=== PATIENT | female | born 1965 | race Caucasian/White ===

== ENCOUNTER 2025-04-05 09:00 | Outpatient (OUT) | payer BC, SELFPAY ==
--- OUTSIDE RECORDS SUMMARY | 2025-04-05 09:07 | XMS_ITS | Clinical Summary ---
Author Organization [facility] Address [address] [place] [address] Care Team Providers Care Review Scheduling Coordinator Name Role Phone Unavailable Primary Care Provider Unavailabl e Allergies No known active allergies Medications No known medications Active Problems No known active problems Social History Tobacco Use Types Packs/Day Years Used Date Smoking Tobacco: Never Smokeless Tobacco: Never Tobacco Cessation:Counseling Given: Not Answered Comments Unknown Sex and Gender Information Value Date Recorded Sex Assigned at Not on file Legal Sex Female 8:22 PM EDT Gender Identity Not on file Sexual Orientation Not on file Plan of Treatment Upcoming Encounters Date Type Department Care Team (Late st Contact Info) Description 12/18/2025 12:40 PM EST Office Visit [facility] [address] [place] [phone] Mabel Soler, PA [address] [place] [address] Health Maintenance Due Date Last Done Comments CT Colonography 1966 Colonoscopy 1966 Colorectal Cancer Screening 1966 FIT-DNA 1966 FIT 1966 FOBT 1966 Sigmoidoscopy 1966 HPV/Cotest 01/09/1996 Influenza Vaccine (Season Ended) 2025 Mammogram 09/14/2025 09/14/2024, 09/02, 03/24/2023, Additional history exists Cervical Cancer Screening 07/02/2026 Pap Smear 07/02/2026 07/02/2023, 06/04, 12/25/2020, Additional history exists Procedures Procedure Name Priority Date/Time Associated Diagnosis Comments BI MAMMOGRAM SCREENING BILATERAL Routine 01/07/2021 12:00 PM EST from Last 3 Months or Most Recently Relevant to Health Maintenance Results * Bilateral screening mammogram (01/07/2021 12:00 PM EST) Anatomical Region Laterality Modality Breast Bilateral Mammography Narrative 01/07/2021 12:00 PM EST PERFORMED AT [facility] LOCATION:[id number] Procedure Note CONVERSION, GENERIC - 05/08/2023 PERFORMED AT [facility] LOCATION:[id number] Mabel EISENBERG IMG BI PROCEDURES Final Resul t from Last 3 Months or Most Recently Relevant to Health Maintenance Insurance [facility]
--- OUTSIDE RECORDS SUMMARY | 2025-04-05 09:07 | XMS_ITS | Clinical Summary ---
Author Organization [facility] Address [address] [place] [address] Care Team Providers Care Trial Manager Name Role Phone Carter Donahue DO Primary Care Provider [phone] Allergies No known active allergies Medications Collagen-Vitami n C-Biotin (COLLAGEN PO) Take by mouth Ac tive vitamin D (ERGOCALCIFEROL ) 1.25 MG (00525 UT) CAPS capsule Take 1 capsule by mouth once a week Active NONFORMULARY suppllements Acti ve Active Problems Problem Noted Date Diagnosed Date Diarrhea, unspecified 09/10/2023 09/10/2023 Lyme disease 09/10/2023 09/10/2023 Overweight 09/10/2023 09/10/2023 Family history of malignant neoplasm of breast 1 11/10/2022 09/10/2023 Family history of colon cancer in mother 021 Family history of colon cancer 08/14/2016 Diverticulosis of large intestine without hemorr josé Internal hemorrhoids Resolved Problems Problem Noted Date Diagnosed Date Resolved Date Colon cancer screening 08/14/201607/29 Encounters Date Type Department Care Team Description 03/02/2025 8:45 AM EDT Office Visit [facility] Part of [address] [place] [address] So Stone APRN - CNM Encounter for annual routine gynecological examination (Primary Dx); Screening for colon cancer; Screening mammogram, encounter for from Last 3 Months Immunizations Immunization Administration Dates Next Due TDaP, ADACEL (age 10y-64y), BOOSTRIX (age 10y+), IM, 0.5mL 1985 Family History Medical History Relation Name Comments Learning Disabilities Brother Heart Attack Father Colon Cancer Mother Glaucoma Sister Relation Name Status Comments Brother Father Maternal Grandfather Maternal Grandmother Mother Other Other Paternal Grandfather Paternal Grandmother Sister Alive Social History Tobacco Use Types Packs/Day Years Used Date Smoking Tobacco: Never Smokeless Tobacco: Never Tobacco Cessation:Counseling Given: Not Answered Alcohol Use Standard Drinks/Week Comments Yes 0 (1 standard drink = 0.6 oz pur e alcohol) Social [facility] Utilities Answer Date Recorded In the past 12 months has th e electric, gas, oil, or water company threatened to shut off services in your home? No 03/02/2025 PHQ-2 Answer Date Recorded PHQ-9 Total Score 0 03/02/2025 Hunger Vital Sign Answer Date Recorded Within the past 12 months, y ou worried that your food would run out before you got the money to buy more. Never true 03/02/20 25 Within the past 12 months, t he food you bought just didn't last and you didn't have money to get more. Never true 03/02/2025 PRAPARE - Transportation Answer Date Re corded In the past 12 months, has l ack of transportation kept you from medical appointments or from getting medications? No 11/2024 In the past 12 months, has l ack of transportation kept you from meetings, work, or from getting things needed for daily living? No 03/02/2025 Housing Stability Vital Sign Answer Juan e Recorded In the last 12 months, was t here a time when you were not able to pay the mortgage or rent on time? No 03/02/2025 In the past 12 months, how m any times have you moved where you were living? 0 03/02/2025 At any time in the past 12 m [facility], were you homeless or living in a [place] facility (including now)? No 03/02/2025 Food Insecurity Answer Date Recorded Within the past 12 months, y ou worried that your food would run out before you got the money to buy more. 1 03/02/2025 Within the past 12 months, t he food you bought just didn't last and you didn't have money to get more. 1 03/02/2025 Comments No Sex and Gender Information Value Date Recorded Sex Assigned at Not on file Legal Sex Female 10:59 AM EST Gender Identity Not on file Sexual Orientation Not on file Last Filed Vital Signs Vital Sign Reading Time Taken Comments Blood Pressure 122/76 03/02/2025 8:38 AM EDT Pulse 84 09/10/2023 10:51 AM EST Temperature 37.1 C (98.8 F) 10/06/2016 12:47 PM EST Respiratory Rate 18 09/10/2023 10:51 AM EST Oxygen Saturation 99% 09/10/2023 10:51 AM EST Inhaled Oxygen Concentration - - Weight 73.5 kg (162 lb) 03/02/2025 8:38 AM EDT Height 157.5 cm (5' 2 ) 03/02/2025 8:38 AM EDT Body Mass Index 29.63 03/02/2025 8:38 AM EDT Plan of Treatment Upcoming Encounters Date Type Department Care Team (Late st Contact Info) Description 03/08/2026 8:15 AM EDT Office Visit [facility] Part of [address] [place] [address] So Stone, BILL DISTRIBUTOR - CN[address] [place] [address] yearly Health Maintenance Due Date Last Done Comments Hepatitis C screen 01/09/1984 Hepatitis B vaccine (1 of 3 - 19+ 3-dose series) 1985 DTaP/Tdap/Td vaccine (2 - Td or Tdap) 1995 1985 HPV (without or with Pap) 01/09/1996 Diabetes screen 2001 Lipids 2006 FIT/FOBT: Average risk 2011 Fecal-DNA (Cologuard): Average risk 2011 Sigmoidoscopy/CT colonography 2011 Pneumococcal 50+ years Vaccine (1 of 1 - PCV) 01/09/2016 Shingles vaccine (1 of 2) 01/09/2016 COVID-19 Vaccine (2 - season) 2024 03/18/2021 Flu vaccine (Season Ended) 2025 Depression Screen 03/02/2026 03/02/2025, 03/02/2025 Cervical cancer screen 07/02/2026 Pap smear 07/02/2026 07/02/2023, 01/31, 12/25/2020, Additional history exists Breast cancer screen 09/14/2026 09/14/2024, 03/24/2023, 02/20/2022, Additional history exists Colonoscopy 10/06/2026 10/06/2016 Colorectal Cancer Screen 10/06/2026 HIV screen Completed 10/02/1990 Hepatitis A vaccine Aged Out No longe r eligible based on patient's age to complete this topic Hib vaccine Aged Out No longer eligi ble based on patient's age to complete this topic Meningococcal (ACWY) vaccine Aged Out No longer eligible based on patient's age to complete this topic Meningococcal B vaccine Aged Out No l onger eligible based on patient's age to complete this topic Polio vaccine Aged Out No longer elig ible based on patient's age to complete this topic Procedures Procedure Name Priority Date/Time Associated Diagnosis Comments HOME OMAR DIGITAL SCREEN SELF REFERRAL W OR WO CAD BILATERAL Routine 09/14/2024 1:18 PM EST Visit for screening mammogram FOREST TECHNICIAN CYTOLOGY Routine 07/02/2023 12:00 AM EDT from Last 3 Months or Most Recently Relevant to Health Maintenance Results * HOME OMAR DIGITAL SCREEN SELF REFERRAL W OR WO CAD BILATERAL (09/14/2024 1:18 PM EST) Anatomical Region Laterality Modality Breast Bilateral Mammography 09/14/2024 2:12 PM EST Impressions 09/14/2024 2:13 PM EST No mammographic evidence of malignancy BIRADS: BIRADS - CATEGORY 1 Negative. Normal interval follow-up is recommended in 12 months. OVERALL ASSESSMENT - NEGATIVE A letter of notification will be sent to the patient regarding the results. The [employer] recommends annual mammograms for women 40 years and older. Performing Facility: [place] [address] Narrative 09/14/2024 2:13 PM EST EXAMINATION: SCREENING DIGITAL BILATERAL MAMMOGRAM WITH TOMOSYNTHESIS, 09/14/2024 TECHNIQUE: Screening mammography of the bilateral breasts was performed with tomosynthesis. 2D standard and 3D tomosynthesis combination imaging performed through both breasts in the MLO and CC projection. Computer aided detection was utilized in the interpretation of this exam. COMPARISON: March 24, 2023 and February 20, 2022 HISTORY: Screening. FINDINGS: There are scattered areas of fibroglandular density. There is no dominant mass, architectural distortion or concerning grouping of microcalcification in either breast. So Stone BILL DISTRIBUTOR - CNM IMG MAMMOGRAPHY ORDERABLES Final Result * FOREST TECHNICIAN Cytology (07/02/2023 12:00 AM EDT) Cytology Report Path Number: [id number] DIAGNOSIS Imaged ThinPrep Pap - Cervical (1 monolayer slide): Specimen Adequacy: Satisfactory for evaluation. -Endocervical/tra nsformation zone component cannot be determined due to atrophy. Descriptive Diagnosis: Negative for intraepithelial lesion or malignancy. Cytotech Screener: EY Electronically Signed Out John Elias CT(ASCP) ey/07/10/2023 Source of Specimen: A: Imaged ThinPrep Pap - Cervical (1 monolayer slide) HPV Reflex?........... ...........HPV if ASCUS Clinical History Postmenopausal High Risk HPV DNA testing is requested if the diagnosis is ASC-US Z12.4 Encounter for screening for malignant neoplasm of cervix Processing Lab: [address] [address] Interpretation performed at [address] [address] This Pap Test has been evaluated with the assistance of the ThinPrep Pap Test Imaging System. The Pap smear is a screening test primarily for squamous epithelial lesions, which is subject to both false negative and false positive results. Your patient should be reminded to consult you immediately if she experiences any suspicious signs or symptoms, regardless of her Pap smear result. GYNECOLOGIC CYTOLOGY REPORT Patient Name: MARIANA MATUTEDAVEY [facility] Rec: [id number] [facility] [employer] [facility] ANATOMIC PATHOLOGY [facility] [place] [address]. [place], [place] [address] [email or web address] CERVICAL MATERIAL 07/02/2023 023 11:03 AM EDT So Castellanos Chase BILL DISTRIBUTOR - CNM PATHOLOGY/CYTOLO GY ORDERABLES Final Result Performing Organization Address City/State/[facility] Co de Phone Number [facility] [address] [phone] [facility] from Last 3 Months or Most Recently Relevant to Health Maintenance Insurance [place] [id number] [id number] Care Teams Trial Manager Relationship Specialty Start Date End Date Carter Donahue DO [address] [place] [address] PCP - General 03/15/13
--- OUTSIDE RECORDS SUMMARY | 2025-04-05 09:07 | XMS_ITS | Encounter Summary ---
Author Organization [facility] Address [address] [place] [address] Care Team Providers Care Staffing Coordinator Name Role Phone Carter Donahue DO Primary Care Provider [phone] Encounter Details Date Type Department Care Team (Late st Contact Info) Description 10/07/2016 FollowUp Telephone Encounter [facility] General Surgery [address] [phone] Lucretia Mccann LPN Social History Tobacco Use Types Packs/Day Years Used Date Smoking Tobacco: Never Comments Unknown Sex and Gender Information Value Date Recorded Sex Assigned at Not on file Legal Sex Female 10:59 AM EST Gender Identity Not on file Sexual Orientation Not on file documented as of this encounter Plan of Treatment Upcoming Encounters Date Type Department Care Team (Late st Contact Info) Description 03/08/2026 8:15 AM EDT Office Visit [facility] Part of [address] [place] [phone] So Stone, HEAD ANIMAL TRAINER - CN[address] [place] [address] yearly documented as of this encounter Visit Diagnoses Not on filedocumented in this encounter Care Teams Staffing Coordinator Relationship Specialty Start Date End Date Carter Donahue DO [address] [facility] [place] [address] PCP - General 03/15/13 documented as of this encounter
[2025-04-05 09:18] LABS: Basophils Percent Auto 0.4 % (0.2-2.0); Eosinophils Absolute Auto 0.1 10^3/uL (0.0-0.7); Eosinophils Percent Auto 1.5 % (0.9-7.0); Hematocrit 36.7 % (36.0-48.0); Hemoglobin 12.5 g/dL (12.0-16.0); Lymphocytes Absolute Auto 2.1 10^3/uL (1.2-3.8); Lymphocytes Percent Auto 44.8 % (20.5-60.0); Mean Corpuscular HGB Conc 34.1 g/dL (29.9-35.2); Mean Corpuscular Hemoglobin 31.6 pg (26.7-34.0); Mean Corpuscular Volume 92.9 fL (81.0-99.0); Mean Platelet Volume 9.8 fL (9.5-13.5); Monocytes Absolute Auto 0.5 10^3/uL (0.3-0.8); Monocytes Percent Auto 9.5 % (1.7-12.0); Neutrophils Absolute Auto 2.1 10^3/uL (1.4-6.5); Neutrophils Percent Auto 43.8 % (43.0-75.0); Platelet Count 204 10^3/uL (150-450); Red Blood Count 3.95 10^6/uL (4.20-5.40); Red Cell Distribution Width 13.3 % (11.0-15.0); White Blood Count 4.8 10^3/uL (4.0-11.0)
[2025-04-05 10:05] LABS: Alanine Aminotransferase 24 U/L (14-59); Albumin Globulin Ratio 1.1; Albumin Level 3.6 g/dL (3.4-5.0); Alkaline Phosphatase 65 U/L (46-116); Anion Gap 13.8; Aspartate Amino Transferase 19 U/L (15-37); Bilirubin Total 0.5 mg/dL (0.2-1.0); Calcium 8.9 mg/dL (8.5-10.1); Carbon Dioxide 26.2 mmol/L (21.0-32.0); Chloride 106 mmol/L (98-107); Chol HDL Ratio 3.1; Cholesterol 204 mg/dL (<=200); Estimated GFR (African America >60 (>=60 mL/min/1.73m^2); Estimated GFR (Non-African Ame >60 (>=60 mL/min/1.73m^2); Globulin 3.3 g/dL; Glucose 99 mg/dL (74-106); HDL Cholesterol 66 mg/dL (40-60); Sodium 142 mmol/L (136-145); Total Protein 6.9 g/dL (6.4-8.2); Triglycerides 31 mg/dL (<=150); VLDL CHOLESTEROL 6.2 mg/dL
== END 2025-04-05 09:01 | disposition home or self-care (01) ==
LOC: LAB 09:05
PROVIDERS: PCP Internal Medicine; Visit Provider Internal Medicine
DX: Z00.00 Encounter for general adult medical examination without abnormal findings (principal)
CPT/HCPCS: 36415; 80053; 80061; 85025

== ENCOUNTER 2025-05-11 10:57 | Outpatient (OUT) | payer BC, SELFPAY ==
--- OUTSIDE RECORDS SUMMARY | 2025-05-03 23:59 | XMS_ITS | Continuity of Care Document ---
Author Organization [facility] Address [address] [place] [address] Care Team Providers Care Applications Architect Name Role Phone ALLI REED Primary Care Physician Encounter FT_BECKY [id number] Date(s): 05/03/25 - 05/03/25 [facility] [address] [facility] [place] [address] us Encounter Diagnosis Screening for malignant neoplasm of colon(Discharge Diagnosis) - 05/03/25 Family history of colon cancer in mother(Discharge Diagnosis) - 05/03/25 Discharge Disposition: Home (Routine DC) Attending Physician: Arnav CABALLERO MD Referring Physician: ALLI REED DO Encounter Type: Clinic Allergies, Adverse Reactions, Alerts No Known Allergies Immunizations Given and Recorded Vaccine Date Status Refusal Reason SARS-CoV-2 (COVID-19) Ad26 vaccine 03/18/21 Record ed Medications No Known Medications Problem List Condition Confirmation Course Effective Dates Status Health St atus Informant BMI 30.0-30.9,adult Confirmed Active Family history of colon cancer in mother Confirmed Active Obesity due to excess calories Confirmed Active Screening for malignant neoplasm of colon Confirmed Active Procedures Procedure Date Related Diagnosis Body Site Status Colonoscopy 10/2016 Completed section Complete d Social History Social History Type Response Smoking Status Never (less than 100 in lifetime);Never entered on: 05/03/25 Sex Female Sex Representation Female (finding) Patient Care team information Care Team Personnel Name: ALLI REED DO Position: FT Physician Member Role: Primary Care Physician Address: [address] [facility], [place] [address]- [place] Telecom: Insurance Providers Guarantor name: Health Plan Information #: 1 Payer: NA Payer Identifier: [id number] Member Number: [id number] Group Number: [id number] Subscriber Identifier: [id number] Relationship to Subscriber: Self Coverage Type: PRIVATE HEALTH INSURANCE Coverage Verification Date: 25 Telecom: PENNY Address: NA
--- OUTSIDE RECORDS SUMMARY | 2025-05-11 10:59 | XMS_ITS | Clinical Summary ---
Author Organization [facility] Address [address] [place] [address] Care Team Providers Care Property Developer Name Role Phone Unavailable Primary Care Provider [...] [facility] [address] [place] [address] Mabel Soler, PA [address] [place] [address] Health Maintenance Due Date Last Done Comments CT Colonography 1966 Colonoscopy 1966 Colorectal Cancer Screening 1966 FIT-DNA 1966 FIT 1966 FOBT 1966 Sigmoidoscopy 1966 HPV/Cotest 01/09/1996 Influenza Vaccine (#1) 2025 Mammogram 09/14/2025 09/14/2024, 09/02, 03/24/2023, Additional [...] Narrative 01/07/2021 12:00 PM EST PERFORMED AT [facility] LOCATION:[id number] Procedure Note CONVERSION, GENERIC - 05/08/2023 PERFORMED AT [facility] LOCATION:[id number] Mabel EISENBERG IMG BI PROCEDURES Final Resul t from Last 3 Months or Most Recently Relevant to Health Maintenance Insurance [facility]
--- OUTSIDE RECORDS SUMMARY | 2025-05-11 10:59 | XMS_ITS | Encounter Summary ---
Author Organization [facility] Address [address] [place] [address] Care Team Providers Care Lease Out Worker Name Role Phone Carter Donahue DO Primary Care Provider Encounter Details Date Type Department Care Team (Late st Contact Info) Description 10/07/2016 FollowUp Telephone Encounter [facility] General Surgery [address] [place] [phone] Lucretia Mccann LPN Social History Tobacco Use [...] Description 03/08/2026 8:15 AM EDT Office Visit [facility] Part of [address] [place] [phone] So Stone, TELEVISION PRODUCER - CN[address] [place] [address] yearly documented as of this encounter Visit Diagnoses Not on filedocumented in this encounter Care Teams Lease Out Worker Relationship Specialty Start Date End Date Carter Donahue DO [address] [facility] [place] [address] PCP - General 03/15/13 documented as of this encounter
--- OUTSIDE RECORDS SUMMARY | 2025-05-11 10:59 | XMS_ITS | Clinical Summary ---
Author Organization [facility] Address [address] [place] [address] Care Team Providers Care Rehab Spec Name Role Phone Carter Donahue DO Primary Care Provider [phone] Allergies No known active allergies Medications Collagen-Vitami n C-Biotin (COLLAGEN PO) Take by mouth Ac tive vitamin D (ERGOCALCIFEROL ) 1.25 MG (37914 UT) CAPS capsule Take 1 capsule by [...] Description 03/02/2025 8:45 AM EDT Office Visit [facility] Part of [address] [place] [address] So Stone APRN - CNM [...] = 0.6 oz pur e alcohol) Social [facility] Utilities Answer Date Recorded In the past [...] any time in the past 12 m [facility], were you homeless or living in a retirement (including now)? No 03/02/2025 Food Insecurity Answer [...] Description 03/08/2026 8:15 AM EDT Office Visit [facility] Part of [address] [place] [address] So Stone, STORE HAND - CN[address] [place] [address] yearly Health Maintenance Due Date [...] (2 - season) 2024 03/18/2021 Flu vaccine (#1) 06/02/2025 Depression Screen 03/02/2026 03/02/2025, 03/02/2025 Cervical cancer [...] 1:18 PM EST Visit for screening mammogram QUARTZ ORIENTATOR CYTOLOGY Routine 07/02/2023 12:00 AM EDT from [...] to the patient regarding the results. The [employer] recommends annual mammograms for women 40 years and older. Performing Facility: [place] [address] Narrative 09/14/2024 2:13 PM EST EXAMINATION: SCREENING [...] of microcalcification in either breast. So Stone STORE HAND - CNM IMG MAMMOGRAPHY ORDERABLES Final Result * QUARTZ ORIENTATOR Cytology (07/02/2023 12:00 AM EDT) Cytology Report Path Number: [id number] DIAGNOSIS Imaged ThinPrep Pap - Cervical (1 [...] for malignant neoplasm of cervix Processing Lab: [address] [address] Interpretation performed at [address] [address] This Pap Test has been evaluated with [...] smear result. GYNECOLOGIC CYTOLOGY REPORT Patient Name: MAIRANA MATUTEDAVEY [place] [facility] Rec: [id number] [facility] [employer] [facility] ANATOMIC PATHOLOGY [facility] [place] [address]. [place], [place] [address] [employer] CERVICAL MATERIAL 07/02/2023 023 11:03 AM EDT So Castellanos Chase STORE HAND - CNM PATHOLOGY/CYTOLO GY ORDERABLES Final Result Performing Organization Address City/State/[facility] Co de Phone Number [facility] [address] [phone] [facility] from Last 3 Months or Most Recently Relevant to Health Maintenance [place] [address] [id number] Care Teams Rehab Spec Relationship Specialty Start Date End Date Carter Donahue DO [address] [place] [address] PCP - General 03/15/13
== END 2025-05-11 10:58 | disposition home or self-care (01) ==
LOC: PST 10:57
PROVIDERS: PCP Internal Medicine; Visit Provider Surgery
DX: Z01.818 Encounter for other preprocedural examination (principal); Z80.0 Family history of malignant neoplasm of digestive organs; Z12.11 Encounter for screening for malignant neoplasm of colon

== ENCOUNTER 2025-05-24 07:22 | Day surgery (SDC) | payer BC, SELFPAY ==
--- NOTE | 2025-05-24 | OP_ITS ---
OPERATION DATE: 05/24/2025 PREOPERATIVE DIAGNOSIS: Colorectal screening, family history of colon cancer in patient?s mother. POSTOPERATIVE DIAGNOSIS: 3 mm cecal polyp on the ileocecal valve and moderate sigmoid diverticulosis. PROCEDURE: Colonoscopy to cecum with cold snare polypectomy x1. SURGEON: Arnav Jay M.D. ANESTHESIA: Monitored anesthesia care. ESTIMATED BLOOD LOSS: Less than 1 mL. INDICATIONS AND CONSENT: Patient is a 60-year-old female with a family history of colon cancer in her mother, presents for colorectal screening. Indications, risks, benefits, alternatives of proceeding with colonoscopy were explained extensively to the patient, including the risks of bleeding, colon perforation or anesthetic complications. All of her questions were answered. Informed consent was obtained. PROCEDURE: Patient was brought to the operating room, placed in the left lateral decubitus position. Monitored anesthesia care was provided. Rectal exam was performed which showed no masses or blood. The scope was inserted into the anal canal. Under direct visualization was advanced. It was advanced to the cecum where cecal markings were clearly identified. There was noted to be a good prep. Upon withdrawal of the scope, mucosal surfaces were carefully examined. On the ileocecal valve, there was noted to be a 3 mm sessile, irregular polyp that was removed with cold snare with good hemostasis. There were no other mass lesions or polyps. No inflammatory changes or ulcerations. There was moderate sigmoid diverticulosis without inflammatory changes or scarring. Scope was retroflexed in the anal canal. There was no significant hemorrhoidal disease. The scope was then withdrawn. Patient tolerated procedure well, was sent to recovery room in good condition. Follow up colonoscopy should be in five years. CC: Dr. Thomas [place]
--- OUTSIDE RECORDS SUMMARY | 2025-05-24 07:26 | XMS_ITS | Clinical Summary ---
Author Organization [facility] Address [address], [address] [place] [address] Care Team Providers Care Vehicle Return Associate Name Role Phone Carter Donahue DO Primary Care Provider [phone] Allergies No known active allergies Medications Collagen-Vitami n C-Biotin (COLLAGEN PO) Take by mouth Ac tive vitamin D (ERGOCALCIFEROL ) 1.25 MG (45699 UT) CAPS capsule Take 1 capsule by [...] Description 03/02/2025 8:45 AM EDT Office Visit [facility] Part of [address] [place] [address] So Stone, ELI - JANNET Encounter for annual routine gynecological examination (Primary [...] = 0.6 oz pur e alcohol) Social [facility] Utilities Answer Date Recorded In the [...] any time in the past 12 m [facility], were you homeless or living in a skilled nursing (including now)? No 03/02/2025 Food Insecurity Answer [...] Description 03/08/2026 8:15 AM EDT Office Visit [facility] Part of [address] [place] [address] So Stone, SHELLAC POLISHER - [address] [place] [address] yearly Health Maintenance Due Date [...] 1:18 PM EST Visit for screening mammogram PSYCHOLOGY INSTRUCTOR CYTOLOGY Routine 07/02/2023 12:00 AM EDT from [...] to the patient regarding the results. [employer] recommends annual mammograms for women 40 years and older. Performing Facility: [place] [id number] Narrative 09/14/2024 2:13 PM EST EXAMINATION: SCREENING [...] of microcalcification in either breast. So Stone SHELLAC POLISHER - CN IM MAMMOGRAPHY ORDERABLES Final Result * PSYCHOLOGY INSTRUCTOR Cytology (07/02/2023 12:00 AM EDT) Cytology Report Path Number: [id number] DIAGNOSIS Imaged ThinPrep Pap - Cervical (1 monolayer slide): Specimen Adequacy: Satisfactory for evaluation. -Endocervical/tra nsformation zone component cannot be determined due to atrophy. Descriptive Diagnosis: Negative for intraepithelial lesion or malignancy. Cytotech Screener: EY Electronically Signed Out John CAMARA(ASCP) ey/07/10/2023 Source of Specimen: A: Imaged ThinPrep Pap - Cervical (1 monolayer slide) HPV Reflex?........... ...........HPV if ASCUS Clinical History Postmenopausal High Risk HPV DNA testing is requested if the diagnosis is ASC-US Z12.4 Encounter for screening for malignant neoplasm of cervix Processing Lab: [address] [id number] Interpretation performed at [address] [phone] This Pap Test has been evaluated with [...] smear result. GYNECOLOGIC CYTOLOGY REPORT [facility] [id number] [facility] [employer] [facility] ANATOMIC PATHOLOGY [address] [facility] [address] [facility] [place] [id number] [employer] CERVICAL MATERIAL 07/02/2023 023 11:03 AM EDT So Castellanos Chase SHELLAC POLISHER - CNM PATHOLOGY/CYTOLO GY ORDERABLES Final Result [facility] [address] [id number] [phone] [facility] LABS from Last 3 Months or Most Recently Relevant to Health Maintenance Insurance [id number] [id number] Care Teams Vehicle Return Associate Relationship Specialty Start Date End Date Carter Donahue DO [address] [place] [address] PCP - General 03/15/13
--- OUTSIDE RECORDS SUMMARY | 2025-05-24 07:26 | XMS_ITS | Encounter Summary ---
Author Organization [facility] Address [address], [address] [place] [address] Care Team Providers Care Postal Support Employee Name Role Phone Carter Donahue DO Primary Care Provider [phone] Encounter Details Date Type Department Care Team (Late st Contact Info) Description 10/07/2016 FollowUp Telephone Encounter [facility] General Surgery [address] [id number] Lucretia Mccann LPN Social History Tobacco Use [...] Description 03/08/2026 8:15 AM EDT Office Visit [facility] Part of [address] [place] [address] So Stone, ADDICTIONS THERAPIST - [id number] [place] [address] yearly documented as of this encounter Visit Diagnoses Not on filedocumented in this encounter Care Teams Postal Support Employee Relationship Specialty Start Date End Date Carter Donahue DO [address] [place] [id number] PCP - General 03/15/13 documented as of this encounter
[2025-05-24 07:30] VITALS: BP 130/79; PULSE 65; TEMP 36.1; O2SAT 98; BMI 29.2
[2025-05-24] MEDS: 0.9 % SODIUM CHLORIDE 500 ML 50 ML IV (07:55)
[2025-05-24 08:54] VITALS: BP 109/74; PULSE 76; TEMP 36.1; O2SAT 99
[2025-05-24 09:09] VITALS: BP 125/77; PULSE 62; O2SAT 100
[2025-05-24 09:24] VITALS: BP 120/78; PULSE 61; O2SAT 100
== END 2025-05-24 09:30 | disposition home or self-care (01) ==
LOC: SURGOUT 07:24
PROVIDERS: PCP Internal Medicine; Visit Provider Surgery
PROC: (CPT 812; principal; 2025-05-24 08:30)
DX: Z12.11 Encounter for screening for malignant neoplasm of colon (principal); D12.0 Benign neoplasm of cecum; Z80.0 Family history of malignant neoplasm of digestive organs; K57.30 Diverticulosis of large intestine without perforation or abscess without bleeding
CPT/HCPCS: 45385; 88305; J2704